=== PATIENT | female | born 1975 | race African-American/Black ===

== ENCOUNTER 2019-05-27 12:59 | Emergency (ER) | payer MEDICAID ==
[~2019-05-27] VITALS: Ht 157.5 cm; Wt 109.0 kg
[2019-05-27 13:10] VITALS: BP 184/93
== END 2019-05-27 14:54 | disposition home or self-care (01) ==
LOC: ER 12:59
DX: M54.42 Lumbago with sciatica, left side (principal); M54.41 Lumbago with sciatica, right side
CPT/HCPCS: 99283

== ENCOUNTER 2019-05-28 07:59 | Emergency (ER) | payer MEDICAID ==
[~2019-05-28] VITALS: Ht 157.5 cm; Wt 109.0 kg
[2019-05-28] MEDS ORDERED: HYDROCODONE/ACETAMINOPHEN 5/325MG TABLET PO ONE (08:30)
[2019-05-28 08:39] VITALS: BP 149/87
== END 2019-05-28 08:52 | disposition home or self-care (01) ==
LOC: ER 07:59
DX: M54.42 Lumbago with sciatica, left side (principal); Z87.891 Personal history of nicotine dependence; Z98.890 Other specified postprocedural states
CPT/HCPCS: 99283